=== PATIENT | male | born 1980 | race Caucasian/White ===

== ENCOUNTER 2019-06-06 07:54 | Outpatient (CLI) | payer BC | END 2019-06-06 23:59 | disposition home or self-care (01) | LOC: RAD 07:54 | PROVIDERS: ATTEND Nurse Practitioner Family | DX: M50.122 Cervical disc disorder at C5-C6 level with radiculopathy (principal); M48.02 Spinal stenosis, cervical region; M41.82 Other forms of scoliosis, cervical region; M41.84 Other forms of scoliosis, thoracic region; M25.78 Osteophyte, vertebrae; M25.50 Pain in unspecified joint | CPT/HCPCS: 36415; 72050; 80053; 80061; 85025; 85651; 86140 ==